=== PATIENT | male | born 1960 | race Caucasian/White ===

== ENCOUNTER 2020-08-23 11:36 | Emergency (ER) | payer MEDICAID ==
[~2020-08-23] VITALS: Ht 182.9 cm; Wt 102.8 kg
[~2020-08-23 11:36] MED LIST: AMLO-150 PO; LISI-170 PO; PARO30TA45 PO; VENL75CA PO
[2020-08-23] MEDS ORDERED: GABA-827 PO (12:00)
--- NOTE | 2020-08-23 12:03 | NUR ---
SAME TRIAGE NOTE. PT STATES [facility] CAME TO HIS HOUSE AND DID SOME BASIC POINT OF CARE LABS, URINALYSIS, EKG, WHICH WAS ALL NORMAL. PT C/O MILD PAIN, NOT IN OBVIOUS DISTRESS AT THIS TIME. POC RV'WD WITH HIM. ERP TO SEE.
--- NOTE | 2020-08-23 12:20 | NUR ---
PT TO CT VIA [facility].
[2020-08-23 12:27] LABS: BASOPHILS % (AUTO) 1 % (0-1); EOSINOPHILS % (AUTO) 1 % (1-7); LYMPHOCYTES % (AUTO) 25 % (22-44); MEAN PLATELET VOLUME 8.5 fL (7.4-10.4); MONOCYTES % (AUTO) 5 % (2-9); NEUTROPHILS % (AUTO) 68 % (42-75); PLATELET COUNT 192 x10^3/uL (130-400); RED CELL DISTRIBUTION WIDTH 12.1 % (9.4-14.8)
[2020-08-23 12:29] LABS: MD NO
[2020-08-23 12:40] LABS: ALANINE AMINOTRANSFERASE 32 U/L (12-78); ANION GAP 4 mmol/L (5-15); CALCIUM 8.6 mg/dL (8.5-10.1); CHLORIDE 109 mmol/L (98-107); CREATININE 1.26 mg/dL (0.7-1.3)
[2020-08-23 12:42] LABS: ALKALINE PHOSPHATASE 64 U/L (45-117); BILIRUBIN,TOTAL 0.3 mg/dL (0.2-1.0); TOTAL PROTEIN 7.7 g/dL (6.4-8.2)
[2020-08-23 13:00] VITALS: BP 157/99
[2020-08-23] MEDS ORDERED: HYDROmorphone 1 MG/ML, 1ML INJ IM ONE (13:00)
[2020-08-23] MEDS ORDERED: HYDROcodone/APAP 5/325 TABLET ONE (13:34)
--- NOTE | 2020-08-23 13:40 | NUR ---
PT DECLINED IM INJECTION. MEDICATED WITH [facility]CO PER ERP.
[2020-08-23] MEDS ORDERED: HYDROcodone/APAP 5/325 TABLET PO ONE ×2 (14:00)
--- NOTE | 2020-08-23 14:15 | NUR ---
D/C INSTRUCTIONS, MEDS & F/U APPT RV'WD WITH PT, HE VERBALIZES UNDERSTANDING. RX GIVEN X1. AMBULATED OUT OF ED WITHOUT DIFFICULTY.
== END 2020-08-23 14:18 | disposition home or self-care (01) ==
LOC: ED 13:00
DX: R10.9 Unspecified abdominal pain (principal); I10 Essential (primary) hypertension; Z90.89 Acquired absence of other organs
CPT/HCPCS: 36415; 74176; 80053; 83605; 85025; 86308; 99284